=== PATIENT | female | born 1945 | race African-American/Black ===

== ENCOUNTER 2016-11-18 06:47 | Day surgery (SDC) | payer OTHER ==
[2016-11-15 13:44] VITALS: BMI 34.0
[2016-11-18] MEDS ORDERED: MIDAZOLAM HCL 2 MG/2 ML SINGLE DOSE VIAL ONE (10:14)
[2016-11-18] MEDS ORDERED: PROPOFOL 20 ML ONE (10:14)
--- NOTE | 2016-11-18 10:22 | HP ---
Past Medical History - Primary Care Physician PCP:: Doug Smith - Admission Chief Complaint: 71 yo postmenopausal female with thick endometrial echo admitted for hysteroscopy and D&C History of Present Illness: Occasional pelvic pain, no PMB History Source: Patient Limitations to Obtaining History: Language Barrier (daughter is translating) - Past Medical History ICT SECURITY SPECIALIST: No: Alzheimer's, CVA, Dementia, Migraine, Multiple Sclerosis, Peripheral Neuropathy, Parkinson's, Seizure, Syncope, TIA, Vertigo, Other Cardiovascular: Yes: HTN Pulmonary: No: Asthma, Bronchitis, Cancer, COPD, O2 Dependent, Pneumonia, Previously Intubated, Pulmonary Embolus, Pulmonary Fibrosis, Sleep Apnea, Other Gastrointestinal: No: Ascites, Cancer, Constipation, Crohn's Disease, Diverticulitis, Diverticulosis, Esophageal Varices, Gastritis, GERD, GI Bleed, Hemorrhoids, Hiatal Hernia, Inflamatory Bowel Disease, Irritable Bowel Disease, Pancreatitis, Peptic Ulcer Disease, Ulcerative Colitis, Other Hepatobiliary: No: Cirrhosis, Cholelithiasis, Cholecystitis, Choledocholithiasis , Hepatitis A, Hepatitis B, Hepatitis C, Other Renal/: No: Renal Failure, Renal Inusuff, BPH, Cancer, Hematuria, Hemodialysis , Neurogenic Bladder, Renal Calculi, UTI, Other ...Para: 1 Heme/Onc: No: Anemia, B12 Deficiency, Bleeding Disorder, Cancer, Current Chemotherapy, Current Radiation Therapy, Hemochromatosis, Hypercoaguable State, Myeloproliferative Synd, Sickle Cell Disease, Sickle Cell Trait, Thrombocytopenia, Other Infectious Disease: No: AIDS, C-Diff, Herpes Zoster, HIV, MRSA, STD's, Tuberculosis, VREF, Other Psych: No: Addictions, Anxiety, Bipolar, Depression, Panic, Psychosis, Schizophrenia, Other Musculoskeletal: Yes: Osteoarthritis Rheumatology: No: Fibromyalgia, Gout, Lupus, Rheumatoid Arthritis, Sarcoidosis, Vasculitis, Other ENT: No: Allergic Rhinitis, Sinusitis, Other Endocrine: No: [place]'s Disease, [place]'s Disease, Diabetes Insipidus, Diabetes Mellitus, Hyperparathyroidism, Hyperthyroidism, Hypothyroidism, Osteopenia, SIADH, Other Dermatology: No: Basal Cell, Cellulitis, Eczema, Melanoma, Psoriasis, Squamous Cell, Other Additional Medical History: h/o menngioma s/p radiation tx, peripheral neuropatha - Past Surgical History Past Surgical History: Yes: Breast Biopsy (lumpectomy for breast cancer, D&C) Hx Myomectomy: No Hx Transabdominal Cerclage: No - Smoking History Smoking history: Former smoker Have you smoked in the past 12 months: No Aproximately how many cigarettes per day: 0 If you are a former smoker, when did you quit?: 9 YRS AGO - Alcohol/Substance Use Hx Alcohol Use: No - Social History Usual Living Arrangement: Yes: With Child ADL: Family Assistance History of Recent Travel: No Home Medications - Allergies Allergies/Adverse Reactions: Allergies Allergy/AdvReac Type Severity Reaction Status Date / Time No Known Drug Allergies Allergy Verified 11/18/16 08:39 DYE Allergy Severe Hives Uncoded 11/18/16 08:39 - Home Medications Home Medications: Ambulatory Orders Ramipril [Altace] 5 mg PO DAILY #0 capsule 06/14/13 Aspirin [ASA -] 81 mg PO DAILY 06/05/14 Hydroxyzine HCl 10 mg PO PRN PRN 06/05/14 [place]-3 Fatty Acids [Foley-3] 1 cap PO DAILY 06/05/14 Sumatriptan Succinate [Imitrex -] 25 mg PO PRN PRN 06/28/14 Family Disease History - Family Disease History Family History: Unremarkable Review of Systems - Review of Systems Constitutional: reports: No Symptoms Eyes: reports: No Symptoms HENT: reports: No Symptoms Neck: reports: No Symptoms Cardiovascular: reports: No Symptoms Respiratory: reports: No Symptoms Gastrointestinal: reports: No Symptoms Genitourinary: reports: No Symptoms Breasts: reports: No Symptoms Reported Musculoskeletal: reports: No Symptoms Integumentary: reports: No Symptoms Neurological: reports: No Symptoms Endocrine: reports: No Symptoms Hematology/Lymphatic: reports: No Symptoms Psychiatric: reports: No Symptoms Pain Intensity: 0 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 Vital Signs: Vital Signs Temperature 98.7 F 11/18/16 08:34 Pulse Rate 71 11/18/16 08:34 Respiratory Rate 20 11/18/16 08:34 Blood Pressure 142/81 11/18/16 08:34 O2 Sat by Pulse Oximetry (%) 100 11/18/16 08:33 Constitutional: Yes: Well Nourished, No Distress, Calm Eyes: Yes: WNL, Conjunctiva Clear HENT: Yes: WNL, Atraumatic, Normocephalic Neck: Yes: WNL, Supple, Trachea Midline Cardiovascular: Yes: WNL, Regular Rate and Rhythm Respiratory: Yes: WNL, Regular, CTA Bilaterally Gastrointestinal: Yes: WNL, Normal Bowel Sounds, Soft, Abdomen, Obese ...Rectal Exam: Yes: Deferred Renal/: Yes: WNL Pelvis: Yes: WNL External Genitalia: Yes: Normal (atrophy) Internal Exam Deferred: No Vaginal Exam: Yes: Normal Cervix: Yes: Normal (atrophy) Uterus: Yes: Normal Adnexa: Normal: Left, Right Musculoskeletal: Yes: WNL Extremities: Yes: WNL Edema: No Integumentary: Yes: WNL Neurological: Yes: WNL, Alert, Oriented ...Motor Strength: WNL Psychiatric: Yes: WNL, Alert, Oriented Assessment/Plan 71 yo postmenopausal female with thick endometrial echo admitted for hysteroscopy and D&C. We had a long discussion re: risks, benefits, and alternatives of surgery. The pt's daughter was translating. The pt verbalized her understanding and requested to proceed.
[2016-11-18] MEDS ORDERED: DEXAMETHASONE SOD PHOSPHATE 4 MG/1 ML VIAL ONE (10:34)
[2016-11-18] MEDS ORDERED: PROMETHAZINE HCL 25 MG/1 ML VIAL IVPUSH PRN (11:02)
[2016-11-18] MEDS ORDERED: ONDANSETRON 4 MG/2 ML VIAL IVPUSH PRN (11:02)
[2016-11-18] MEDS ORDERED: oxyCODONE HCL 5 MG TABLET PO PRN (11:02)
[2016-11-18] MEDS ORDERED: LACTATED RINGERS SOLUTION 1,000 ML IV SCH (11:15)
--- NOTE | 2016-11-18 11:44 | OP ---
Operative Note - Note: Operative Date: 11/18/16 Pre-Operative Diagnosis: Endometrial hyperplasia Operation: Hysteroscopy, polypectomy, D&C Findings: Small endometrial polyp Post-Operative Diagnosis: Other (Endometrial hyperplasia, endometrial polyp) Surgeon: Doug Smith Anesthesiologist/LAUNDRY SUPERVISOR: Rock Sullivan Anesthesia: General Specimens Removed: Uterine polyp, endometrial curettings Estimated Blood Loss (mls): 5 Blood Volume Replaced (mls): 0 Fluid Volume Replaced (mls): 500 Operative Report Dictated: Yes
[2016-11-18 12:02] VITALS: TEMP 97.8
[2016-11-18 13:36] VITALS: BP 128/73; PULSE 64
--- NOTE | 2016-11-19 12:49 | PATH ---
Surgical Pathology Report Patient Name: CECILIA CORTEZ [facility]. Rec. #: [id number] /Age/Gender: 1945 (Age: 71) / F Account: [id number] Location: [facility] SUR[facility] Taken: 11/18/2016 Received: 11/18/2016 Reported: 11/19/2016 Physicians: Doug Smith M.D. Specimen(s) Received ENDOMETRIAL CURETTINGS WITH POLYP Clinical History Thickened endometrium Final Diagnosis ENDOMETRIAL CURETTINGS WITH POLYPS: FRAGMENTS OF ENDOMETRIAL POLYPS. BACKGROUND SCANT FRAGMENTS OF ATROPHIC ENDOMETRIUM. FRAGMENTS OF BENIGN SMOOTH MUSCLE. FRAGMENTS OF BENIGN ENDOCERVICAL TISSUE. FRAGMENTS OF BENIGN SQUAMOUS EPITHELIUM. Electronically Signed Aron Najera M.D. Gross Description A. Thin formalin labeled "endometrial curettings with polyps" is a 4.0 x 2.3 x 0.4 cm aggregate of woodruff soft tissue fragments admixed with blood-tinged mucous. The formalin is filtered and the specimen is entirely submitted in 2 cassettes. /11/18/2016 [facility]11/18/2016
--- NOTE | 2016-11-21 11:33 | OP ---
DATE OF OPERATION: 11/18/2016 PREOPERATIVE DIAGNOSIS: Endometrial hyperplasia. POSTOPERATIVE DIAGNOSIS: Endometrial hyperplasia, uterine polyp. PROCEDURE: Hysteroscopy, polypectomy, dilation and curettage. SURGEON: Doug Smith MD BIOLOGY DEPARTMENT CHAIR: None. ANESTHESIOLOGIST: Rock Sullivan MD ANESTHESIA: General. COMPLICATIONS: None. ESTIMATED BLOOD LOSS: Less than 5 mL. URINE OUTPUT: Not tracked. IV FLUIDS: 500 mL crystalloid. PATHOLOGY: Uterine polyp, endometrial curettings. FINDINGS: Examination under anesthesia revealed a small anteverted uterus with no pelvic or adnexal masses. Hysteroscopy reveals a small endometrial polyp on the posterior uterine wall. No other lesions were noted. The polyp was removed completely. DESCRIPTION OF PROCEDURE: The patient was met preoperatively. Risks, benefits, and alternatives were discussed with the patient and her daughter. The patient's daughter translated the conversation. All questions were answered, and the patient requested to proceed with the surgery. The patient was brought to the OR with the IV running. She was placed on the surgical table in the supine position. General anesthesia was achieved without difficulty. The patient was then placed in a dorsal lithotomy position using adjustable Dominick stirrups. She was prepped and draped in the usual sterile fashion. Examination under anesthesia was done with findings as described above. The time-out procedure was conducted as per standard protocol. The surgeon then proceeded with the hysteroscopy. The cervical os was dilated to accommodate size 17 Gilbert dilator. A diagnostic hysteroscope was introduced through the cervical os with the findings as described above. The hysteroscope was then used to remove the posterior wall polyp. The hysteroscope was then removed from the uterus. A sharp curettage was performed without complications. The tissue was submitted to Pathology for evaluation. The hysteroscope was then introduced again into the uterine cavity. There were no further polyps or lesions noted. Good hemostasis was confirmed. All of the instruments were removed from the patient. The patient was then returned to supine position. The patient was transferred to recovery room in stable condition. Sponge, lap, and instrument counts were correct. Shubham [id number]
== END 2016-11-18 13:20 | disposition home or self-care (01) ==
LOC: JASU-SURG 06:47
PROVIDERS: ATTEND Obstetrics & Gynecology
PROC: 0UB98ZX Excision of Uterus, Via Natural or Artificial Opening Endoscopic, Diagnostic (ICD-10-PCS; principal; 2016-11-18 10:00)
PROC: 0UDB8ZX Extraction of Endometrium, Via Natural or Artificial Opening Endoscopic, Diagnostic (ICD-10-PCS; 2016-11-18 10:00)
DX: N84.0 Polyp of corpus uteri (principal)
CPT/HCPCS: 88305-TC; 94760

== ENCOUNTER 2017-04-09 20:43 | Emergency (ER) | payer OTHER ==
[2017-04-09 21:16] VITALS: BP 139/74; PULSE 67; TEMP 97.5; BMI 34.3
[2017-04-09] MEDS ORDERED: traMADol HCL 50 MG TABLET PO ONE (21:44)
--- NOTE | 2017-04-09 21:44 | PDOC ---
History of Present Illness - General History Source: Patient Exam Limitations: No Limitations - History of Present Illness Initial Comments: 04/09/17 21:57 The patient is a 71 year old female with a past medical history significant for HTN, left breast CA(2006), s/p lumpectomy, benign meningioma(radiation at [facility]), and arthritis who presents to the ED complaining of left hip pain, groin pain and left sided back pain. As per daughter the patient has been taking motrin for pain for a week but the pain has progressively worsened and the patient was unable to ambulate today after taking a shower. Patient took 600 mg of motrin this morning. She denies any trauma, falls or strenuous activity. She denies any fever or chills. <Telma Perrin - Last Filed: 04/09/17 21:57> <Emmanuelle Fernandez - Last Filed: 04/10/17 00:42> - General Chief Complaint: Pain Stated Complaint: HIP PAIN Time Seen by Provider: 04/09/17 21:10 Past History <Telma Perrin - Last Filed: 04/09/17 21:57> - Past Medical History Anemia: No Asthma: No Cancer: Yes (BREAST LEFT LUMPECTOMY) Cardiac Disorders: No CVA: No COPD: No CHF: No Dementia: No Diabetes: No GI Disorders: No Disorders: No HTN: Yes Hypercholesterolemia: No Liver Disease: No Seizures: No Thyroid Disease: No - Surgical History Abdominal Surgery: No Appendectomy: No Cardiac Surgery: No Cholecystectomy: No Lung Surgery: No Neurologic Surgery: Yes Orthopedic Surgery: No - Immunization History Immunization Up to Date: Yes - Suicide/Smoking/Psychosocial Hx Smoking Status: No Smoking History: Never smoked Have you smoked in the past 12 months: No Number of Cigarettes Smoked Daily: 0 If you are a former smoker, when did you quit?: 9 YRS AGO Information on smoking cessation initiated: No Hx Alcohol Use: No Drug/Substance Use Hx: No Substance Use Type: None Hx Substance Use Treatment: No <Emmanuelle Fernandez - Last Filed: 04/10/17 00:42> - Past Medical History Allergies/Adverse Reactions: Allergies Allergy/AdvReac Type Severity Reaction Status Date / Time No Known Drug Allergies Allergy Verified 04/09/17 21:07 DYE Allergy Severe Hives Uncoded 04/09/17 21:07 Home Medications: Ambulatory Orders Ramipril [Altace] 5 mg PO DAILY #0 capsule 06/14/13 Aspirin [ASA -] 81 mg PO DAILY 06/05/14 [place]-3 Fatty Acids [[place]-3] 1 cap PO DAILY 06/05/14 Review of Systems - Review of Systems Able to Perform ROS?: Yes Comments:: 04/09/17 21:57 GENERAL/CONSTITUTIONAL: No fever or chills. No weakness. HEAD, EYES, EARS, NOSE AND THROAT: No change in vision. No ear pain or discharge. No sore throat. GASTROINTESTINAL: No nausea, vomiting, diarrhea or constipation. GENITOURINARY: No dysuria, frequency, or change in urination. CARDIOVASCULAR: No chest pain or shortness of breath. RESPIRATORY: No cough, wheezing, or hemoptysis. MUSCULOSKELETAL: +back pain, groin pain, hip pain. No muscle swelling or pain. No neck pain. SKIN: No rash NEUROLOGIC: No headache, vertigo, loss of consciousness, or change in strength/ sensation. ENDOCRINE: No increased thirst. No abnormal weight change. HEMATOLOGIC/LYMPHATIC: No anemia, easy bleeding, or history of blood clots. ALLERGIC/IMMUNOLOGIC: No hives or skin allergy. <Telma Perrin - Last Filed: 04/09/17 21:57> *Physical Exam - Vital Signs Last Vital Signs Temp Pulse Resp BP Pulse Ox 97.5 F L 67 14 139/74 100 04/09/17 21:07 04/09/17 21:07 04/09/17 21:07 04/09/17 21:07 04/09/17 21:07 <Telma Perrin - Last Filed: 04/09/17 21:57> - Vital Signs Last Vital Signs Temp Pulse Resp BP Pulse Ox 97.5 F L 67 14 139/74 100 04/09/17 21:07 04/09/17 21:07 04/09/17 21:07 04/09/17 21:07 04/09/17 21:07 - Physical Exam Comments: GENERAL: Awake, alert, and fully oriented. Appears uncomfortable. HEAD: No signs of trauma EYES: PERRLA, EOMI, sclera anicteric, conjunctiva clear ENT: Auricles normal inspection, hearing grossly normal, nares patent, oropharynx clear without exudates. Moist mucosa NECK: Normal ROM, supple, no lymphadenopathy, JVD, or masses LUNGS: Breath sounds equal, clear to auscultation bilaterally. No wheezes, and no crackles HEART: Regular rate and rhythm, normal S1 and S2, no murmurs, rubs or gallops ABDOMEN: Soft, nontender, normoactive bowel sounds. No guarding, no rebound. No masses MUSCULOSKELETAL: +Midline lumbar spinal tenderness, no stepoffs. +Tenderness to L hip. Remainder of extremities with normal range of motion, no edema. No clubbing or cyanosis. No cords, erythema, or tenderness NEUROLOGICAL: Cranial nerves II through XII grossly intact. Normal speech. Motor and sensation intact. SKIN: Warm, Dry, normal turgor, no rashes or lesions noted. <Emmanuelle Fernandez - Last Filed: 04/10/17 00:42> *DC/Admit/Observation/Transfer - Attestations Scribe Attestion: 04/09/17 21:58 Documentation prepared by ASHLEY Gamez, acting as senior medical transcriptionist for Emmanuelle Fernandez MD. <Telma Perrin - Last Filed: 04/09/17 21:57> - Discharge Dispostion Admit: No <Emmanuelle Fernandez - Last Filed: 04/10/17 00:42> Diagnosis at time of Disposition: Hip pain Qualifiers: Laterality: left Qualified Code(s): M25.552 - Pain in left hip - Discharge Dispostion Disposition: HOME Condition at time of disposition: Stable - Referrals Referrals: Re Donaldson MD [Primary Care Provider] - - Patient Instructions Printed Discharge Instructions: DI for Osteoarthritis
[2017-04-09] MEDS ORDERED: traMADol HCL 50 MG TABLET ONE (22:49)
[2017-04-10] MEDS ORDERED: traMADol HCL 50 MG TABLET PO ONE (00:53)
[2017-04-10] MEDS ORDERED: traMADol HCL 50 MG TABLET ONE (01:32)
== END 2017-04-10 01:43 | disposition home or self-care (01) ==
LOC: JER 20:43
DX: M25.552 Pain in left hip (principal); Z85.3 Personal history of malignant neoplasm of breast; Z90.12 Acquired absence of left breast and nipple
CPT/HCPCS: 72100-TC; 73523-TC; 99283-25

== ENCOUNTER 2017-09-25 07:46 | Day surgery (SDC) | payer OTHER ==
[2017-09-22 11:15] VITALS: BMI 36.0
[2017-09-25] MEDS ORDERED: oxyCODONE HCL 10 MG SUSTAINED ACTING TABLET PO STA (08:07)
[2017-09-25] MEDS ORDERED: MIDAZOLAM HCL 2 MG/2 ML SINGLE DOSE VIAL ONE ×2 (08:20→08:27)
[2017-09-25] MEDS ORDERED: DEXAMETHASONE SOD PHOSPHATE/PF 10 MG/ML SDV ONE (08:20)
[2017-09-25] MEDS ORDERED: BUPIVACAINE HCL/PF (5 MG/ML) 30 ML VIAL IJ ONE (08:20)
[2017-09-25] MEDS ORDERED: ceFAZolin SODIUM 1 GM VIAL ONE (08:26)
[2017-09-25] MEDS ORDERED: methylPREDNISolone ACET (DEPO) 40 MG/1 ML VIAL ONE (08:30)
[2017-09-25] MEDS ORDERED: THROMBIN (BOVINE) 5,000 UNIT VIAL TP ONE ×2 (08:30→09:49)
[2017-09-25] MEDS ORDERED: LIDOCAINE 1%/EPI 1:100000 (20 ML MULTI DOSE VIAL) ONE (08:30)
--- NOTE | 2017-09-25 08:39 | HP ---
History & Physical Update - History History: No Change - Physical Physical: No Change - Assessment Assessment: No Change - Plan Plan: No Change
[2017-09-25] MEDS ORDERED: LIDOCAINE 1%/EPI 1:100000 (50 ML MULTI DOSE VIAL) INF ONE (09:35)
[2017-09-25] MEDS ORDERED: GELATIN SPONGE,ABSORBABLE 1 GM PACKET TP ONE (09:50)
[2017-09-25] MEDS ORDERED: methylPREDNISolone ACET (DEPO) 40 MG/1 ML VIAL IM ONE (10:51)
[2017-09-25] MEDS ORDERED: GUM MASTIC/STORAX/MSAL/ALCOHOL 1 DRP DROPSBTL MC ONE ×2 (10:55→11:03)
[2017-09-25] MEDS ORDERED: oxyCODONE HCL 5 MG TABLET PO PRN (11:10)
[2017-09-25] MEDS ORDERED: ONDANSETRON 4 MG/2 ML VIAL IVPUSH PRN (11:10)
[2017-09-25] MEDS ORDERED: LACTATED RINGERS SOLUTION 1,000 ML IV SCH (11:15)
--- NOTE | 2017-09-25 11:23 | OP ---
Operative Note - Note: Operative Date: 09/25/17 Pre-Operative Diagnosis: Spinal stenosis (L4-S1) with radiculopathy Operation: Bilateral laminectomy L4-S1 Post-Operative Diagnosis: Same as Pre-op Surgeon: Jones Tucker Distribution Lead: Atif Magallon Anesthesiologist/HAIRPIECE STYLIST: Adams Oviedo (TLIP) Anesthesia: Spinal Estimated Blood Loss (mls): 20 Fluid Volume Replaced (mls): 1,000 Operative Report Dictated: Yes
--- NOTE | 2017-09-25 11:24 | SURG ---
Surgery Trim Operator Note Trim Operator: Atif Magallon PA-C Date of Service: 09/25/17 Diagnosis: Spinal stenosis L4-S1 with radiculopathy Procedure: Bilateral laminectomy L4-S1 I was present for the entirety of the operative procedure. For further detail, please refer to operative report. Visit type - Case Type Case Type: Scheduled Admission - New patient This patient is new to me today: Yes Date on this admission: 09/25/17
--- NOTE | 2017-09-25 11:56 | OP ---
DATE OF OPERATION: 09/25/2017 PREOPERATIVE DIAGNOSIS: Spinal stenosis L4-L5, L5-S1. POSTOPERATIVE DIAGNOSIS: Spinal stenosis L4-L5, L5-S1. PROCEDURE PERFORMED: Laminectomy L4-L5, L5-S1. SURGEON: Jones Tucker MD COLLAR TRIMMER: MADISON Linares ESTIMATED BLOOD LOSS: 50 mL. IV FLUIDS: Per Anesthesia. ANESTHESIA: Spinal/TLIP. COMPLICATIONS: There were none. DISPOSITION: The patient was brought to the PACU in stable condition. INDICATIONS FOR SURGERY: The patient is a 72-year-old female who has been suffering from pain from her back down her legs. X-rays and MRI were completed, which noted that she had spinal stenosis at L4-L5, L5-S1. She had gone through an exhaustive course of treatment for this, which included medications, physical therapy as well as injections. Unfortunately, her pain continued to persist despite all this. At this point, risks, benefits, and alternatives were discussed, and the patient consented to surgery. DESCRIPTION OF PROCEDURE: The patient was brought to the operating room by the Anesthesia staff. After appropriate patient identification was performed, spinal anesthesia was given. TLIP block was given. The patient was able to position herself prone onto the Chance frame and avoid all bony prominences. Two needles were placed into the back to yvonne off the L4 and S1 segments. X-ray was taken to confirm this was correct. The needle was removed, and 10 mL of lidocaine with epinephrine was injected into her back. At this time, her back was prepped and draped in a sterile manner. At this point, a time-out was completed. An incision was made from the top of L4 down to the bottom of S1. Dissection was carried down to the fascia. Fascia was split open at this time, and appropriate retractor was then placed in. A spinal needle was placed onto the L4 lamina to yvonne off the L5-S1 level. X-ray was taken to confirm this was correct. Needle was removed, and the microscope was brought in. The interspinous ligament at L4-L5 and L5-S1 was removed. The spinous process at L5 was removed. A bur was used to remove the lamina at L5. A complete decompression was performed such that by the end of the procedure, the L5 and S1 nerve roots appeared to be well decompressed. All bleeding was well controlled at this time. Steri-Strips was placed over the nerve root. FloSeal was placed over that. The fascia was closed with a No. 1 Vicryl suture. The subcutaneous tissue was closed with 2-0 Vicryl suture. The skin was closed with 3-0 Monocryl suture. Dermabond was applied. Steri-Strips were applied. A sterile dressing was applied. The patient was placed supine on the OR bed and brought to the PACU in stable condition. Shubham MAIER/[id number]
[2017-09-25 12:58] VITALS: TEMP 97.6
[2017-09-25] MEDS ORDERED: traMADol HCL 50 MG TABLET PO ONE (13:21)
[2017-09-25 16:04] VITALS: BP 120/64; PULSE 72
== END 2017-09-25 15:30 | disposition home or self-care (01) ==
LOC: FASU 07:46
PROVIDERS: ATTEND Orthopaedic Surgery Orthopaedic Surgery of the Spine
PROC: 01NB0ZZ Release Lumbar Nerve, Open Approach (ICD-10-PCS; principal; 2017-09-25 09:05)
DX: M48.061 Spinal stenosis, lumbar region without neurogenic claudication (principal); M48.07 Spinal stenosis, lumbosacral region
CPT/HCPCS: 72100-TC-FY; 76000-TC-FY

== ENCOUNTER 2018-03-30 09:48 | Emergency (ER) | payer OTHER ==
[2018-03-30 09:53] VITALS: BP 159/78; PULSE 72; TEMP 97.8; BMI 34.8
[2018-03-30] MEDS ORDERED: KETOROLAC TROMETHAMINE 60 MG/2 ML VIAL IM ONE (10:28)
--- NOTE | 2018-03-30 10:28 | PDOC ---
History of Present Illness - General Chief Complaint: Back Pain Stated Complaint: BACK PAIN Time Seen by Provider: 03/30/18 09:59 History Source: Patient Exam Limitations: No Limitations - History of Present Illness Initial Comments: 03/30/18 10:28 72y F hx of spinal stenosis with radiculopathy s/p lameniectomy presents with back pain with radiation to the L leg. The pt notse the pain is similar to her chronic pain, states it worsened this weekend. no recent trauma/falls, weakness , numbness. Pt notse the pain is in the L lower back and radiates down her L leg, worse when sitting and trying to get up. denies any numbness/waekness, fever/chills, urinary or bowel incontinece. pt took flexeril on without improvement, has been using alleve occasionally without improvment. no associated abd pain, cp, sob, palpitations, headache. pain is similar to prior. pt had a MRI with her pain mangement doctor last week, but does not know results. Past History - Past Medical History Allergies/Adverse Reactions: Allergies Allergy/AdvReac Type Severity Reaction Status Date / Time No Known Drug Allergies Allergy Verified 03/30/18 09:49 DYE Allergy Severe Hives Uncoded 03/30/18 09:49 iv contrast dye Allergy Uncoded 03/30/18 09:56 Home Medications: Ambulatory Orders Aspirin [ASA -] 81 mg PO DAILY 06/05/14 Cyclobenzaprine HCl [Flexeril 10 mg] 10 mg PO BID PRN 03/30/18 Gabapentin 100 mg PO HS 03/30/18 Naproxen [Naprosyn -] 500 mg PO BID 03/30/18 Ramipril [Altace] 10 mg PO DAILY 03/30/18 Anemia: No Asthma: No Cancer: Yes (BREAST LEFT LUMPECTOMY) Cardiac Disorders: No CVA: No COPD: No CHF: No Dementia: No Diabetes: No GI Disorders: No Disorders: No HTN: Yes Hypercholesterolemia: No Liver Disease: No Seizures: No Thyroid Disease: No - Surgical History Abdominal Surgery: No Appendectomy: No Cardiac Surgery: No Cholecystectomy: No Lung Surgery: No Neurologic Surgery: No Orthopedic Surgery: No - Immunization History Immunization Up to Date: Yes - Suicide/Smoking/Psychosocial Hx Smoking Status: No Smoking History: Never smoked Have you smoked in the past 12 months: No Number of Cigarettes Smoked Daily: 10 If you are a former smoker, when did you quit?: 2004 Information on smoking cessation initiated: No Hx Alcohol Use: No Drug/Substance Use Hx: No Substance Use Type: None Hx Substance Use Treatment: No Review of Systems - Review of Systems Able to Perform ROS?: Yes Comments:: 03/30/18 10:31 Constitutional - no reported Fever, Chills, HEENT: no reported vision changes, sore throat Respiratory: no reported cough, sob, hemoptysis Cardiac: no reported chest pain, palpitations, light headedness, leg swelling Abd/GI: no reported abd pain, nausea, vomiting, blood per rectum, melena, diarrhea : no reported dysuria, frequency, discharge Musculskelatal -+back pain, radiculopathy no reported joint swelling skin - no reported bruising, erythema, rash neurological: no reported headache, numbness, focal weakness, tingling, ataxia, hematologic: no reported easy bruising, easy bleeding *Physical Exam - Vital Signs Last Vital Signs Temp Pulse Resp BP Pulse Ox 97.8 F 72 18 159/78 100 03/30/18 09:48 03/30/18 09:48 03/30/18 09:48 03/30/18 09:48 03/30/18 09:48 - Physical Exam Comments: 03/30/18 10:34 GENERAL: The patient is awake, alert, and fully oriented, Nontoxic - in no acute distress. HEAD: Normocephalic, atraumatic. EYES: extraocular movements intact, sclera anicteric, conjunctiva clear. ENT: Normal voice, Moist mucous membranes. NECK: Normal range of motion, supple LUNGS: Breath sounds equal, clear to auscultation bilaterally. No wheezes, no rhonchi, no rales. HEART: Regular rate and rhythm, normal S1 and S2 without murmur, rub or gallop. ABDOMEN: Soft, nontender, normoactive bowel sounds. No guarding, no rebound. . No CVA tenderness BACK: mild tenderness at Lumar spine and supperior L buttock. no fluctuance, warmth induration NEUROLOGICAL: No facial assymetry, Normal speech, nrmal gait, normal strength in upper.lower extermities PSYCH: Normal mood, normal affect. SKIN: Warm, Dry, normal turgor, Medical Decision Making - Medical Decision Making 03/30/18 10:35 atraumatic acute on chronic worsening +radiclopathy with back pain will give toradol, flexeril no red flags pt had MRI recently, will dfer imaging today 03/30/18 11:20 the pt is feeling improved ambulating will dc with pmd fu return precautions were discussed I discussed the physical exam findings, ancillary test results and final diagnoses with the patient. I answered all of the patient's questions. The patient was satisfied with the care received and felt comfortable with the discharge plan and treatment plan. The patient will call their primary care physician within 24 hours to arrange follow-up and will return to the Emergency Department with any new, persistent or worsening symptoms. *DC/Admit/Observation/Transfer Diagnosis at time of Disposition: Back pain with radiculopathy - Discharge Dispostion Disposition: HOME Condition at time of disposition: Improved Decision to Admit order: No - Referrals Referrals: Re Donaldson MD [Staff Physician] - - Patient Instructions Printed Discharge Instructions: DI for Low Back Pain Additional Instructions: Return to the emergency department immediately with ANY new, persistent or worsening symptoms including numbness, tingling, weakness, fevers or any other concerns. Take ibuprofen (400mg)/tylenol(650mg) every 6 hours for 2 days. Apply heat to your sore muscles. You MUST call and follow up with your doctor in 3-4 days for further evaluation of your symptoms. Your emergency department visit is not complete without a followup with your doctor for reevaluation.. Results were discussed with you. Please make sure your doctor reviews the results of your emergency evaluation. Print Language: WALLISIAN - Post Discharge Activity
[2018-03-30] MEDS ORDERED: CYCLOBENZAPRINE HCL 10 MG TABLET (FP) PO ONE (10:29)
[2018-03-30] MEDS ORDERED: KETOROLAC TROMETHAMINE 60 MG/2 ML VIAL ONE (10:29)
[2018-03-30] MEDS ORDERED: CYCLOBENZAPRINE HCL 10 MG TABLET (FP) ONE (10:32)
== END 2018-03-30 11:30 | disposition home or self-care (01) ==
LOC: FER 09:48
PROC: 3E0233Z Introduction of Anti-inflammatory into Muscle, Percutaneous Approach (ICD-10-PCS; principal; 2018-03-30)
DX: M54.9 Dorsalgia, unspecified (principal); M54.10 Radiculopathy, site unspecified; I10 Essential (primary) hypertension; Z87.891 Personal history of nicotine dependence; Z85.3 Personal history of malignant neoplasm of breast
CPT/HCPCS: 99283-25

== ENCOUNTER 2021-02-14 04:52 | Emergency (ER) | payer OTHER ==
[2021-02-14] MEDS ORDERED: KETOROLAC TROMETHAMINE 30 MG/1 ML VIAL IVPUSH ONE (05:13)
[2021-02-14] MEDS ORDERED: SODIUM CHLORIDE 1,000 ML ONE (05:13)
[2021-02-14 05:15] VITALS: BP 154/98; PULSE 74; BMI 34.9
[2021-02-14] MEDS ORDERED: KETOROLAC TROMETHAMINE 30 MG/1 ML VIAL ONE (05:39)
[2021-02-14 06:29] LABS: BASO % 0.8 % (0-2.0); EOS % 1.1 % (0-4.5); HEMATOCRIT 40.4 % (32.4-45.2); HEMOGLOBIN 13.1 GM/dL (10.7-15.3); MCHC 32.4 g/dl (32.0-36.0); MEAN CELL VOLUME 83.4 fl (80-96); MEAN PLT VOLUME 8.6 fl (7.5-11.1); MONO % 8.4 % (3.8-10.2); NEUT % 55.7 % (42.8-82.8); PLATELET COUNT 322 10^3/uL (134-434); RBC 4.85 M/mm3 (3.60-5.2); RDW 15.5 % (11.6-15.6); WHITE BLOOD COUNT 5.6 K/mm3 (4.0-10.0)
[2021-02-14 06:58] LABS: ALBUMIN 3.8 g/dl (3.4-5.0); BLOOD UREA NITROGEN 11.3 mg/dL (7-18)
[2021-02-14 07:01] LABS: CREATININE 0.7 mg/dL (0.55-1.3)
[2021-02-14 07:03] LABS: BILIRUBIN,TOTAL 0.6 mg/dL (0.2-1)
[2021-02-14 07:04] LABS: TOT PROT 7.6 g/dl (6.4-8.2)
== END 2021-02-14 07:21 | disposition home or self-care (01) ==
LOC: FER 04:52
PROC: 3E0333Z Introduction of Anti-inflammatory into Peripheral Vein, Percutaneous Approach (ICD-10-PCS; principal; 2021-02-14)
DX: M54.5 Low back pain (principal)
CPT/HCPCS: 36415; 74176-TC; 80053; 85025; 99284-25

== ENCOUNTER 2022-02-11 17:04 | Observation (INO) | payer OTHER ==
[2022-02-11] MEDS ORDERED: ONDANSETRON 4 MG/2 ML VIAL IVPUSH ONE (17:36)
[2022-02-11] MEDS ORDERED: SODIUM CHLORIDE 0.9% 500 ML INFUS.BAG IV ONE (17:47)
[2022-02-11] MEDS ORDERED: ONDANSETRON 4 MG/2 ML VIAL ONE (17:58)
[2022-02-11 18:18] LABS: BILIRUBIN,TOTAL 0.4 mg/dl (0.2-1); CALCIUM 9.7 mg/dl (8.5-10); MAGNESIUM 2.1 mg/dL (1.8-2.4); PHOSPHOROUS 3.9 mg/dl (2.5-4.9); TOT PROT 7.2 g/dl (6.4-8.2)
[2022-02-11 19:00] LABS: HEMATOCRIT 39.9 % (32.4-45.2); HEMOGLOBIN 13.3 G/dL (10.7-15.3); INR 1.03 (0.83-1.09); MCH 28.2 pg (25.7-33.7); MCHC 33.3 g/dl (32.0-36.0); MEAN CELL VOLUME 84.8 fl (80-96); MEAN PLT VOLUME 8.7 fl (7.5-11.1); PLATELET COUNT 278.2 10^3/uL (134-434); PROTHROMBIN TIME (PATIENT) 11.8 SEC (9.7-13.0); RDW 15.8 % (11.6-15.6); WHITE BLOOD COUNT 6.9 10^3/uL (4.0-10.8)
[2022-02-11] MEDS ORDERED: ACETAMINOPHEN 325 MG TABLET (FP) ONE (19:37)
[2022-02-11] MEDS ORDERED: ACETAMINOPHEN 325 MG TABLET (FP) PO ONE (19:37)
[2022-02-11 20:11] LABS: EPITHELIAL CELLS FEW /hpf
[2022-02-11 22:23] LABS: ANISOCYTOSIS 1+
[2022-02-11 22:24] LABS: PLATELET ESTIMATE ADEQUATE
[2022-02-11 23:38] VITALS: BMI 36.6
[2022-02-12] MEDS: APIXABAN 5 MG TABLET PO SCH ×3 (00:07→22:30)
[2022-02-12 08:22] LABS: ALBUMIN 3.7 g/dl (3.4-5.0); BILIRUBIN,TOTAL 0.7 mg/dl (0.2-1); CALCIUM 9.1 mg/dl (8.5-10); CREATININE 0.8 mg/dl (0.55-1.3); TOT PROT 6.7 g/dl (6.4-8.2)
[2022-02-12 09:46] LABS: HEMATOCRIT 39.7 % (32.4-45.2); HEMOGLOBIN 12.8 GM/dL (10.7-15.3); MCH 27.2 pg (25.7-33.7); MCHC 32.4 g/dl (32.0-36.0); MEAN CELL VOLUME 84.2 fl (80-96); MEAN PLT VOLUME 8.7 fl (7.5-11.1); PLATELET COUNT 288 10^3/uL (134-434); RBC 4.72 M/mm3 (3.60-5.2); RDW 14.6 % (11.6-15.6)
[2022-02-12] MEDS: TOPIRAMATE 25 MG TABLET PO SCH (09:56)
[2022-02-12 11:28] LABS: ANISOCYTOSIS 0; MACROCYTOSIS 0; PLATELET ESTIMATE NORMAL
[2022-02-12] MEDS: ACETAMINOPHEN 325 MG TABLET (FP) PO PRN (12:18)
[2022-02-12 13:25] LABS: MAGNESIUM 2.4 mg/dL (1.8-2.4)
[2022-02-12 13:27] LABS: PHOSPHOROUS 3.9 mg/dL (2.5-4.9)
[2022-02-12 18:55] VITALS: RESP 18
[2022-02-13] MEDS: ACETAMINOPHEN 325 MG TABLET (FP) PO PRN (10:40)
[2022-02-13] MEDS: APIXABAN 5 MG TABLET PO SCH (10:41)
[2022-02-13] MEDS: TOPIRAMATE 25 MG TABLET PO SCH (10:41)
[2022-02-13 12:30] VITALS: BP 129/87; PULSE 71; TEMP 97.8
== END 2022-02-13 12:08 | disposition home or self-care (01) ==
LOC: FER 17:04 → INTOOBSV 21:52 → FM/S 21:52
PROVIDERS: ADMIT Internal Medicine; ATTEND Internal Medicine
PROC: 3E033GC Introduction of Other Therapeutic Substance into Peripheral Vein, Percutaneous Approach (ICD-10-PCS; principal; 2022-02-11)
PROC: 3E0337Z Introduction of Electrolytic and Water Balance Substance into Peripheral Vein, Percutaneous Approach (ICD-10-PCS; 2022-02-11)
DX: I48.91 Unspecified atrial fibrillation (principal); I95.9 Hypotension, unspecified; Z68.36 Body mass index [BMI] 36.0-36.9, adult; E66.8 Other obesity; R11.0 Nausea; Z91.041 Radiographic dye allergy status
CPT/HCPCS: 0241U-QW; 36415; 71045-TC-FY; 80053; 80061; 81003; 81015; 83036; 83690; 83735; 83880; 84100; 84443; 84484; 85027; 85610; 86850; 86900; 86901; 87077; 87086; 93005; 93306-TC; 96361; 96374; 99285-25; G0378

== ENCOUNTER 2022-07-27 08:41 | Emergency (ER) | payer OTHER ==
[2022-07-27 08:54] VITALS: BP 111/73; PULSE 78; RESP 18; TEMP 97.9; BMI 37.3
[2022-07-27] MEDS ORDERED: ACETAMINOPHEN 325 MG TABLET (FP) PO ONE (09:20)
[2022-07-27] MEDS ORDERED: ACETAMINOPHEN 325 MG TABLET (FP) ONE (09:31)
[2022-07-27] MEDS ORDERED: oxyCODONE HCL 5 MG TABLET PO ONE (11:16)
[2022-07-27] MEDS ORDERED: oxyCODONE HCL 5 MG TABLET ONE (11:20)
== END 2022-07-27 11:31 | disposition home or self-care (01) ==
LOC: FER 08:41
DX: S92.901A Unspecified fracture of right foot, initial encounter for closed fracture (principal); W01.0XXA Fall on same level from slipping, tripping and stumbling without subsequent striking against object, initial encounter
CPT/HCPCS: 73502-TC-RT-FY; 73562-TC-RT-FY; 73610-TC-RT-FY; 73630-TC-RT-FY; 99284-25

== ENCOUNTER 2023-01-23 04:35 | Day surgery (SDC) | payer OTHER ==
[2023-01-20 09:03] VITALS: BMI 37.7
[2023-01-23 09:18] VITALS: TEMP 97.4
[2023-01-23 10:12] VITALS: BP 135/91; PULSE 54; RESP 19
== END 2023-01-23 10:05 | disposition home or self-care (01) ==
LOC: JASU-ENDO 04:35
PROVIDERS: ATTEND Internal Medicine Gastroenterology
PROC: 0DBL8ZX Excision of Transverse Colon, Via Natural or Artificial Opening Endoscopic, Diagnostic (ICD-10-PCS; principal; 2023-01-23 08:30)
DX: Z12.11 Encounter for screening for malignant neoplasm of colon (principal); Z80.0 Family history of malignant neoplasm of digestive organs; D12.3 Benign neoplasm of transverse colon
CPT/HCPCS: 88305-TC